=== PATIENT | male | born 1990 | race Caucasian/White ===

== ENCOUNTER 2017-02-06 10:36 | Emergency (ER) | payer SELFPAY ==
[2017-02-06 10:43] VITALS: BMI 31.4
[2017-02-06 10:45] VITALS: PULSE 70; TEMP 97.9
[2017-02-06] MEDS ORDERED: Sodium Chloride 0.9% 1,000 ML IV ONE (10:53)
[2017-02-06 11:33] LABS: BASO % 0.7 % (0.0-2.0); EOS # 0.1 K/uL (0.0-0.7); EOS % 0.9 % (0.0-4.0); HEMATOCRIT 45.1 % (35.0-51.0); LYMPH # 1.2 K/uL (1.0-4.3); LYMPH % 17.5 % (20.0-40.0); MEAN CORPUSCULAR HEMOGLOBIN 31.2 pg (27.0-31.0); MEAN CORPUSCULAR HGB CONC 35.1 g/dL (33.0-37.0); MEAN PLATELET VOLUME 9.8 fL (7.2-11.7); MONO # 0.4 K/uL (0.0-0.8); MONO % 6.1 % (0.0-10.0); RED CELL DISTRIBUTION WIDTH 12.7 % (11.5-14.5); WHITE BLOOD COUNT 6.9 K/uL (4.8-10.8)
[2017-02-06 11:37] LABS: RBC URINE 2 /hpf (0-3); URINE BACTERIA RARE (<OCC); URINE BILIRUBIN NEGATIVE (NEGATIVE); URINE BLOOD NEGATIVE (NEGATIVE); URINE COLOR Straw (YELLOW); URINE GLUCOSE (UA) 3+ mg/dL (Normal); URINE KETONE 1+ mg/dL (NEGATIVE); URINE LEUKOCYTE ESTERASE TRACE Leu/uL (Negative); URINE PROTEIN NEGATIVE (NEGATIVE); URINE UROBILINOGEN NORMAL mg/dL (0.2-1.0); WBC URINE 7 /hpf (0-5)
[2017-02-06 11:49] LABS: ALB/GLOB RATIO 1.1 (1.0-2.1); ALKALINE PHOSPHATASE 177 U/L (38-126); ALT/SGPT 28 U/L (21-72); AST/SGOT 27 U/L (17-59); BILIRUBIN,TOTAL 0.7 mg/dL (0.2-1.3); BLOOD UREA NITROGEN 14 mg/dL (9-20); CALCIUM 8.5 mg/dl (8.6-10.4); CARBON DIOXIDE 26 mmol/L (22-30); CHLORIDE 95 mmol/L (98-107); GFR AFRICAN-AMERICAN > 60; GLUCOSE,RANDOM 378 mg/dL (75-110); SODIUM 131 mmol/L (132-148); TOTAL PROTEIN 7.8 g/dL (6.3-8.3)
[2017-02-06] MEDS ORDERED: (Novolin R) Insulin Human Regular 100 units/ml vial IV STA (11:53)
[2017-02-06] MEDS ORDERED: Sodium Chloride 0.9% 1,000 ML ONE (12:02)
[2017-02-06] MEDS ORDERED: (Novolin R) Insulin Human Regular 100 units/ml vial ONE (12:03)
--- NOTE | 2017-02-06 13:50 | C.PDOC ---
Time Seen by Provider: 02/06/17 10:49 Chief Complaint (Nursing): High Blood Sugar History Per: Patient Onset/Duration Of Symptoms: Days Current Symptoms Are (Timing): Still Present Severity: Moderate Current Diabetic Medications: None Causative (Exacerbating) Factor(s): Missed Taking Medication (for "a couple of months") Associated Infectious Symptoms: Urinary Frequency Treatment Prior To Provider Evaluation: None Additional History Per: Prior Records Past Medical History Reviewed: Historical Data, Nursing Documentation, Vital Signs Vital Signs: Last Vital Signs Temp 97.9 F 02/06/17 10:43 Pulse 70 02/06/17 10:43 Resp 18 02/06/17 10:43 BP 135/80 02/06/17 10:43 Pulse Ox 99 02/06/17 10:43 - Medical History PMH: Diabetes Surgical History: No Surg Hx Family History: States: Unknown Family Hx - Social History Hx Alcohol Use: No Hx Substance Use: No - Immunization History Hx Tetanus Toxoid Vaccination: No Hx Influenza Vaccination: No Hx Pneumococcal Vaccination: No Review Of Systems Except As Marked, All Systems Reviewed And Found Negative. Constitutional: Positive for: Malaise. Negative for: Fever Cardiovascular: Negative for: Chest Pain Respiratory: Negative for: Shortness of Breath Gastrointestinal: Negative for: Vomiting, Abdominal Pain, Diarrhea Genitourinary: Positive for: Frequency. Negative for: Dysuria Musculoskeletal: Negative for: Neck Pain, Back Pain Skin: Negative for: Rash Neurological: Negative for: Weakness, Numbness, Seizures, Altered Mental Status Physical Exam - Physical Exam Appears: Non-toxic, No Acute Distress Skin: Normal Color, Warm, Dry, No Rash Head: Atraumatic, Normacephalic Eye(s): bilateral: Normal Inspection, PERRL, EOMI Neck: Normal ROM, Supple Cardiovascular: Rhythm Regular Respiratory: Normal Breath Sounds, No Accessory Muscle Use Gastrointestinal/Abdominal: Soft, No Tenderness Back: No CVA Tenderness Extremity: Normal ROM, No Pedal Edema Neurological/Psych: Oriented x3, Normal Speech, Normal Cognition, Normal Motor, Normal Sensation ED Course And Treatment - Laboratory Results Result Diagrams: 02/06/17 11:30 02/06/17 11:30 Lab Interpretation: Abnormal Interpretation Of Abnormal: Hyperglycemia O2 Sat by Pulse Oximetry: 99 Pulse Ox Interpretation: Normal Progress - Interventions Interventions:: Observation, Intravenous fluid - Medications Administered Intravenous: Other (Insulin) - Data Reviewed Data Reviewed: Lab, Old records - Patient Status Patient status: Mostly improved - Continuity of Care Discussed patient case with:: Patient, ED Nurse - Patient Plan Patient Plan: Discharge, F/U with PCP Disposition Counseled Patient/Family Regarding: Studies Performed, Diagnosis, Need For Followup, Rx Given - Disposition Referrals: [facility] at [facility] [Outside] Disposition: HOME/ ROUTINE Disposition Time: 13:50 Condition: IMPROVED Additional Instructions: Follow up in the clinic within 1-2 weeks for further evaluation and treatment. Return to the ER if you develop worsening of symptoms or if you have any other concerns. Prescriptions: metFORMIN [glucOPHAGE] 500 mg PO BID #60 tab Instructions: Diabetic Hyperglycemia (ED) - Clinical Impression Clinical Impression: Uncontrolled diabetes mellitus with hyperglycemia
[2017-02-06 14:10] VITALS: BP 122/75; RESP 16; O2SAT 98
== END 2017-02-06 14:09 | disposition home or self-care (01) ==
LOC: C.ER 10:36
DX: E11.65 Type 2 diabetes mellitus with hyperglycemia (principal)
CPT/HCPCS: 80053; 81001; 82009; 82948; 85025; 96360; 99284; J7040

== ENCOUNTER 2018-03-15 03:17 | Emergency (ER) | payer SELFPAY ==
[2018-03-15 03:17] VITALS: BMI 31.4
[2018-03-15 03:32] VITALS: BP 137/89; PULSE 83; RESP 20; TEMP 97.6; O2SAT 100
--- NOTE | 2018-03-15 03:52 | C.PDOC ---
History Of Present Illness 28 year old male presents to ED with dental pain for the past 2 days. Patient has been taking tylenol for the pain with little improvement. Patient denies fever, chills, headache, or any injuries. Chief Complaint (Nursing): Dental Pain History Per: Patient History/Exam Limitations: no limitations Onset/Duration Of Symptoms: Days (2) Current Symptoms Are (Timing): Still Present Additional History Per: Patient Past Medical History Reviewed: Historical Data, Nursing Documentation, Vital Signs Vital Signs: Last Vital Signs Temp 97.6 F 03/15/18 03:27 Pulse 83 03/15/18 03:27 Resp 20 03/15/18 03:27 BP 137/89 03/15/18 03:27 Pulse Ox 100 03/15/18 03:27 - Medical History PMH: Diabetes Surgical History: No Surg Hx Family History: States: Unknown Family Hx - Social History Hx Alcohol Use: Yes Hx Substance Use: No - Immunization History Hx Tetanus Toxoid Vaccination: No Hx Influenza Vaccination: No Hx Pneumococcal Vaccination: No Review Of Systems Constitutional: Negative for: Fever, Chills, Weakness Eyes: Negative for: Redness ENT: Positive for: Mouth Pain Respiratory: Negative for: Shortness of Breath Skin: Negative for: Rash Neurological: Negative for: Weakness, Numbness, Headache, Dizziness Physical Exam - Physical Exam Appears: Well, Non-toxic, No Acute Distress Skin: Normal Color, Warm, Dry Head: Atraumatic, Normacephalic, No Swelling (facial) Eye(s): bilateral: Normal Inspection, PERRL, EOMI Oral Mucosa: Moist, No Trismus Teeth: Caries, Other (sensitivity) Gingiva: Swelling (upper right inscisor/molar area), No Other (drainage) Throat: Normal, No Erythema, No Exudate, Other (airway patent) Neck: Normal ROM, Supple Chest: Symmetrical, No Deformity Respiratory: No Accessory Muscle Use Extremity: Normal ROM Extremity: Bilateral: Atraumatic, Normal Color And Temperature Neurological/Psych: Oriented x3, Normal Speech, Normal Cognition, Normal Cranial Nerves ED Course And Treatment O2 Sat by Pulse Oximetry: 100 Medical Decision Making Medical Decision Making: Impression: 28 year old with complaint of dental pain. Plan: Patient was given Ibuprofen PO, Tramadol PO, and penicillin PO to treat infected area and alleviate pain. Disposition Counseled Patient/Family Regarding: Diagnosis, Need For Followup, Rx Given - Disposition Disposition: HOME/ ROUTINE Disposition Time: 03:52 Condition: STABLE Prescriptions: Ibuprofen [Motrin Tab] 800 mg PO TID PRN #21 tab PRN Reason: Pain, Moderate (4-7) Penicillin VK [Penicillin VK Tab] 500 mg PO TID #21 tab Instructions: Tooth Decay, Adult Forms: Gen Discharge Inst Lao, [facility] (Lao) Print Language: PAKISTANI - Clinical Impression Clinical Impression: Dental caries - PA / FACILITIES ASSISTANT / Resident Statement MD/DO has reviewed & agrees with the documentation as recorded. (Ria Mohr) - Scribe Statement The provider has reviewed the documentation as recorded by the Scribe (Ria Mohr) All medical record entries made by the Scribe were at my direction and personally dictated by me. I have reviewed the chart and agree that the record accurately reflects my personal performance of the history, physical exam, medical decision making, and the department course for this patient. I have also personally directed, reviewed, and agree with the discharge instructions and disposition.
== END 2018-03-15 04:17 | disposition home or self-care (01) ==
LOC: C.ER 03:17
DX: K02.9 Dental caries, unspecified (principal)